=== PATIENT | female | born 1990 | race American Indian/Alaskan Native ===

== ENCOUNTER 2019-01-14 11:41 | Emergency (ER) | payer SELFPAY ==
[2019-01-14 12:03] VITALS: BP 145/71
--- NOTE | 2019-01-14 12:04 | Emergency Department Report ---
Blank Doc - Documentation Documentation: This is a 28-year-old female that presents with right eyelid swelling. Stated was bitten by a insect and believes is getting worse with swelling and pain. Happened 3 days ago. This initial assessment/diagnostic orders/clinical plan/treatment(s) is/are subject to change based on patient's health status, clinical progression and re- assessment by fellow clinical providers in the ED. Further treatment and workup at subsequent clinical providers discretion. Patient/guardians urged not to elope from the ED as their condition may be serious if not clinically assessed and managed. Initial orders include: 1- Patient sent to [facility] for further evaluation and treatment
--- NOTE | 2019-01-14 13:27 | Emergency Department Report ---
ED General Adult HPI - General Chief complaint: Medical Clearance Stated complaint: RT EYEBROW YELLOW ALESSANDRA/PAIN Time Seen by Provider: 01/14/19 12:01 Source: patient Mode of arrival: Ambulatory Limitations: No Limitations - History of Present Illness Initial comments: This is a 28 year-old female who presents since to the emergency room with swelling and pain over right eyebrow from a bee sting 3 days ago. Patient states this occurred while she was at work and she works for the [employer]. She was sent to an urgent care for clearance which was far from home so she came to the ER for clearance. She reports itching and mild swelling. She denies visual changes. Onset/Timin -: days(s) Location: eyes (right eyebrow) Radiation: non-radiation Severity scale (0 -10): 6 Quality: aching Consistency: intermittent Improves with: none Worsens with: none Associated Symptoms: denies other symptoms Treatments Prior to Arrival: none - Related Data Previous Rx's Medication Instructions Recorded Last Taken Type hydrOXYzine PAMOATE [Vistaril] 25 mg PO Q6HR PRN #20 capsule 01/14/19 Unknown Rx methylPREDNISolone [Medrol 4MG 4 mg PO DAILY #1 tab.ds.pk 01/14/19 Unknown Rx DOSEPAK (21 tabs)] Allergies Allergy/AdvReac Type Severity Reaction Status Date / Time No Known Allergies Allergy Unverified 01/14/19 11:42 ED Review of Systems ROS: Stated complaint: RT EYEBROW YELLOW ALESSANDRA/PAIN Other details as noted in HPI Constitutional: denies: chills, fever Respiratory: denies: cough, shortness of breath, wheezing Cardiovascular: denies: chest pain, palpitations Gastrointestinal: denies: abdominal pain, nausea, diarrhea Skin: lesions (swelling over left eyebrow). denies: rash Neurological: denies: headache, weakness, paresthesias Psychiatric: denies: anxiety, depression ED Past Medical Hx - Past Medical History Previous Medical History?: No - Surgical History Past Surgical History?: No - Social History Smoking Status: Never Smoker Substance Use Type: None - Medications Home Medications: Home Medications Medication Instructions Recorded Confirmed Last Taken Type hydrOXYzine PAMOATE [Vistaril] 25 mg PO Q6HR PRN #20 capsule 01/14/19 Unknown Rx methylPREDNISolone [Medrol 4MG 4 mg PO DAILY #1 tab.ds.pk 01/14/19 Unknown Rx DOSEPAK (21 tabs)] ED Physical Exam - General Limitations: No Limitations General appearance: alert, in no apparent distress, obese - ENT ENT exam: Present: mucous membranes moist - Respiratory Respiratory exam: Present: normal lung sounds bilaterally. Absent: respiratory distress - Cardiovascular Cardiovascular Exam: Present: regular rate, normal rhythm. Absent: systolic murmur, diastolic murmur, rubs, gallop - GI/Abdominal GI/Abdominal exam: Present: soft, normal bowel sounds - Neurological Exam Neurological exam: Present: alert, oriented X3 - Psychiatric Psychiatric exam: Present: normal affect, normal mood - Skin Skin exam: Present: warm, dry, intact, normal color, other (1/2 cm nonfluctuant abscess above left eyebrow, nontender and no surrounding cellulitis). Absent: rash ED Course Vital Signs 01/14/19 12:02 Temperature 98.2 F Pulse Rate 84 Respiratory 16 Rate Blood Pressure 145/71 O2 Sat by Pulse 100 Oximetry ED Medical Decision Making - Medical Decision Making Patient was examined by me. Vitals are normal and patient is in no acute distress. There is mild swelling of the left eyebrow that is nontender which appears to be from a insect bite. Start medrol dose pack and vistaril. Plan discussed with patient to discharge home and treat outpatient. Patient discharged home in stable condition. Follow up with PCP in 2-3 days. Critical care attestation.: If time is entered above; I have spent that time in minutes in the direct care of this critically ill patient, excluding procedure time. ED Disposition Clinical Impression: Insect bite Qualifiers: Encounter type: initial encounter Site of insect bite: head Site of insect bite of head: eyelid Laterality: left Qualified Code(s): S00.262A - Insect bite (nonvenomous) of left eyelid and periocular area, initial encounter; W57.XXXA - Bitten or stung by nonvenomous insect and other nonvenomous arthropods, initial encounter Disposition: - TO HOME OR SELFCARE Is pt being admited?: No Does the pt Need Aspirin: No Condition: Stable Instructions: Insect Bite or Sting (ED) Additional Instructions: Complete full course of steroids. Prescriptions: methylPREDNISolone [Medrol 4MG DOSEPAK (21 tabs)] 4 mg PO DAILY #1 tab.ds.pk hydrOXYzine PAMOATE [Vistaril] 25 mg PO Q6HR PRN #20 capsule PRN Reason: Itching Referrals: [facility] [Outside] - 3-5 Days [facility] [Outside] - 3-5 Days [facility] [Provider Group] - 3-5 Days Forms: Work/School Release Form(ED) Time of Disposition: 13:34
== END 2019-01-14 13:44 | disposition home or self-care (01) ==
LOC: ED 11:41
DX: S00.262A Insect bite (nonvenomous) of left eyelid and periocular area, initial encounter (principal); Z79.899 Other long term (current) drug therapy; W57.XXXA Bitten or stung by nonvenomous insect and other nonvenomous arthropods, initial encounter; Y93.89 Activity, other specified; Y92.89 Other specified places as the place of occurrence of the external cause; Y99.8 Other external cause status
CPT/HCPCS: 99282

== ENCOUNTER 2019-05-26 22:04 | Emergency (ER) | payer SELFPAY ==
[2019-05-26 22:27] VITALS: BP 167/92
--- NOTE | 2019-05-27 01:40 | Emergency Department Report ---
HPI - General Chief Complaint: Upper Respiratory Infection Time Seen by Provider: 05/27/19 01:15 - HPI HPI: Room 42 The patient is a 28-year-old female presenting with a chief complaint of "flulike symptoms." The patient states for the past 4 days she's had body aches, head and chest congestion and a cough productive of sputum. Patient states she's had her subjective fever and rhinorrhea. Patient states today she developed bilateral ear pain prompting her to come to the emergency department. Patient states her sister was sick with the same symptoms Location: [See above] Duration: [See above] Quality: [See above] Severity: [See above] Timing: [See above] Context: [See above] Modifying factors: [See above] Associated signs and symptoms: [see above] ED Past Medical Hx - Past Medical History Previous Medical History?: No - Surgical History Past Surgical History?: No - Family History Family history: no significant - Social History Smoking Status: Never Smoker Substance Use Type: None (denies illicit drug use) - Medications Home Medications: Home Medications Medication Instructions Recorded Confirmed Last Taken Type hydrOXYzine PAMOATE [Vistaril] 25 mg PO Q6HR PRN #20 capsule 01/14/19 Unknown Rx methylPREDNISolone [Medrol 4MG 4 mg PO DAILY #1 tab.ds.pk 01/14/19 Unknown Rx DOSEPAK (21 tabs)] Amoxicillin [Amoxicillin TAB] 875 mg PO BID #14 tablet 05/27/19 Unknown Rx Benzonatate [Tessalon Perles] 100 mg PO Q8HR #30 capsule 05/27/19 Unknown Rx HYDROcodone/APAP 5-325 [[place] 1 - 2 each PO Q6HR PRN #7 tablet 05/27/19 Unknown Rx 5/325] Ibuprofen [Motrin 800 MG tab] 800 mg PO Q8HR PRN #20 tablet 05/27/19 Unknown Rx ED Review of Systems ROS: Stated complaint: COLD SYMPTOMS, EAR PAIN Other details as noted in HPI Constitutional: fever (subjective) Eyes: denies: eye pain ENT: ear pain, throat pain Respiratory: cough Cardiovascular: denies: chest pain Endocrine: no symptoms reported Gastrointestinal: denies: abdominal pain Genitourinary: denies: dysuria Musculoskeletal: myalgia Neurological: denies: headache Physical Exam - Physical Exam Vital Signs: Vital Signs 05/26/19 22:21 Temperature 99.8 F H Pulse Rate 101 H Respiratory 18 Rate Blood Pressure 167/92 O2 Sat by Pulse 97 Oximetry Physical Exam: GENERAL: The patient is well-developed well-nourished female sitting in chair not appearing to be in acute distress HEENT: Normocephalic. Atraumatic. Extraocular motions are intact. Patient has moist mucous membranes. TMs clear bilaterally. Oropharynx slightly injected on the right side NECK: Supple. No meningitic signs are noted. Midline CHEST/LUNGS: Clear to auscultation. There is no respiratory distress noted. HEART/CARDIOVASCULAR: Regular. There is no tachycardia. There is no gallop rub or murmur. ABDOMEN: Abdomen is soft, nontender. Patient has normal bowel sounds. There is no abdominal distention. SKIN: There is no rash. There is no edema. There is no diaphoresis. NEURO: The patient is awake, alert, and oriented. The patient is cooperative. The patient has normal speech MUSCULOSKELETAL: There is no evidence of acute injury. ED Course Vital Signs 05/26/19 22:21 Temperature 99.8 F H Pulse Rate 101 H Respiratory 18 Rate Blood Pressure 167/92 O2 Sat by Pulse 97 Oximetry ED Medical Decision Making - Lab Data Laboratory Tests 05/27/19 02:04 Influenza A (Rapid) Negative Influenza B (Rapid) Negative - Radiology Data Radiology results: report reviewed (chest x-ray), image reviewed (chest x-ray) interpreted by me: Chest x-ray-no focal infiltrates, no pneumothorax [facility] [address] [place] [address] XRay Report Signed Patient: WALLY DEE MR #: [id number] : 1990 Acct:[id number] Age/Sex: 28 / F ADM Date: 05/26/19 Loc: ED Attending Dr: Ordering Physician: JOSELITO ROBERTS MD Date of Service: 05/27/19 Procedure(s): XR chest routine 2V Accession Number(s): [id number] cc: JOSELITO ROBERTS MD Fluoro Time In Minutes: CHEST 2 VIEWS INDICATION / CLINICAL INFORMATION: cough, congestion. COMPARISON: None available. FINDINGS: SUPPORT DEVICES: None. HEART / MEDIASTINUM: No significant abnormality. LUNGS / PLEURA: No significant pulmonary or pleural abnormality. No pneumothorax. ADDITIONAL FINDINGS: No significant additional findings. IMPRESSION: 1. No acute findings. Signer Name: Trey Quintana MD Signed: 05/27/2019 1:50 AM Workstation Name: [id number] Transcribed By: Dictated By: Trey Quintana MD Electronically Authenticated By: Trey Quintana MD Signed Date/Time: 05/27/19149 DD/ 9 TD/TT: - Differential Diagnosis influenza, sinusitis, bronchitis, pneumonia Critical care attestation.: If time is entered above; I have spent that time in minutes in the direct care of this critically ill patient, excluding procedure time. ED Disposition Clinical Impression: URI (upper respiratory infection) Disposition: - TO HOME OR SELFCARE Is pt being admited?: No Does the pt Need Aspirin: No Condition: Stable Instructions: Upper Respiratory Infection (ED) Additional Instructions: Return to the emergency department should you develop worsening symptoms, inability to tolerate food or liquids, high fever or any other concerns Prescriptions: Amoxicillin [Amoxicillin TAB] 875 mg PO BID #14 tablet Ibuprofen [Motrin 800 MG tab] 800 mg PO Q8HR PRN #20 tablet PRN Reason: Pain, Moderate (4-6) HYDROcodone/APAP 5-325 [[place] 5/325] 1 - 2 each PO Q6HR PRN #7 tablet PRN Reason: Pain Benzonatate [Tessalon Perles] 100 mg PO Q8HR #30 capsule Referrals: NATALIE WATSON MD [Staff Physician] - 3-5 Days Time of Disposition: 02:58
--- NOTE | 2019-05-27 01:55 | XRay Report ---
CHEST 2 VIEWS INDICATION / CLINICAL INFORMATION: cough, congestion. COMPARISON: None available. FINDINGS: SUPPORT DEVICES: None. HEART / MEDIASTINUM: No significant abnormality. LUNGS / PLEURA: No significant pulmonary or pleural abnormality. No pneumothorax. ADDITIONAL FINDINGS: No significant additional findings. IMPRESSION: 1. No acute findings. Signer Name: Trey Quintana MD Signed: 05/27/2019 1:50 AM Workstation Name: [id number]
== END 2019-05-27 03:10 | disposition home or self-care (01) ==
LOC: ED 22:04
DX: J06.9 Acute upper respiratory infection, unspecified (principal); Z79.899 Other long term (current) drug therapy
CPT/HCPCS: 71046; 87400

== ENCOUNTER 2019-08-11 07:54 | Emergency (ER) | payer OTHER ==
[2019-08-11 08:07] VITALS: BP 121/71
[2019-08-11] MEDS ORDERED: predniSONE 20 MG TAB PO ONE (13:11)
[2019-08-11] MEDS ORDERED: KETOROLAC 60 MG/2 ML INJ IM ONE (13:11)
--- NOTE | 2019-08-11 14:19 | Emergency Department Report ---
ED Neck Pain/Injury HPI - General Chief Complaint: Pain General Stated Complaint: BODY, RIG AND SHOULDER PAIN Time Seen by Provider: 08/11/19 13:10 Mode of arrival: Ambulatory Limitations: No Limitations - History of Present Illness Initial Comments: This is a 28-year-old female nontoxic, well nourished in appearance, no acute signs of distress presents to the ED with c/o of tight sided upper back pain. Patient stated that the past 2 days she was moving and developed this pain. Patient states that pain radiates to right upper arm. Patient denies any trauma. Denies any bladder or bowel instability. Patient denies any urinary symptoms. Denies any fever, chills, nausea, vomiting, headache, stiff neck, chest pain or shortness of breath. Patient denies any numbness or tingling. Denies any allergies. Denies significant past medical history. MD Complaint: upper back pain -: days(s) Place: work Radiation: right upper extremity Severity: mild Severity scale (0 -10): 3 Quality: aching Consistency: intermittent Improves With: none Worsens With: none Associated Symptoms: none. denies: headache, fever, numbness, tingling, weakness, vertigo, difficulty walking, swollen glands, difficulty swallowing, nausea, vomiting Treatments Prior to Arrival: none - Related Data Previous Rx's Medication Instructions Recorded Last Taken Type hydrOXYzine PAMOATE [Vistaril] 25 mg PO Q6HR PRN #20 capsule 01/14/19 Unknown Rx methylPREDNISolone [Medrol 4MG 4 mg PO DAILY #1 tab.ds.pk 01/14/19 Unknown Rx DOSEPAK (21 tabs)] Amoxicillin [Amoxicillin TAB] 875 mg PO BID #14 tablet 05/27/19 Unknown Rx Benzonatate [Tessalon Perles] 100 mg PO Q8HR #30 capsule 05/27/19 Unknown Rx HYDROcodone/APAP 5-325 [[place] 1 - 2 each PO Q6HR PRN #7 tablet 05/27/19 Unknown Rx 5/325] Ibuprofen [Motrin 800 MG tab] 800 mg PO Q8HR PRN #20 tablet 05/27/19 Unknown Rx Cyclobenzaprine [Flexeril] 10 mg PO QHS PRN #10 tablet 08/11/19 Unknown Rx Naproxen 500 mg PO Q12H PRN #20 tablet 08/11/19 Unknown Rx Allergies Allergy/AdvReac Type Severity Reaction Status Date / Time No Known Allergies Allergy Unverified 01/14/19 11:42 ED Review of Systems ROS: Stated complaint: BODY, RIG AND SHOULDER PAIN Other details as noted in HPI Constitutional: denies: chills, fever Eyes: denies: eye pain, eye discharge, vision change ENT: denies: ear pain, throat pain Respiratory: denies: cough, shortness of breath, wheezing Cardiovascular: denies: chest pain, palpitations Endocrine: no symptoms reported Gastrointestinal: denies: abdominal pain, nausea, diarrhea Genitourinary: denies: urgency, dysuria, discharge Musculoskeletal: back pain. denies: joint swelling, arthralgia Skin: denies: rash, lesions Neurological: denies: headache, weakness, paresthesias Psychiatric: denies: anxiety, depression Hematological/Lymphatic: denies: easy bleeding, easy bruising ED Past Medical Hx - Past Medical History Previous Medical History?: No - Surgical History Past Surgical History?: No - Social History Smoking Status: Never Smoker - Medications Home Medications: Home Medications Medication Instructions Recorded Confirmed Last Taken Type hydrOXYzine PAMOATE [Vistaril] 25 mg PO Q6HR PRN #20 capsule 01/14/19 Unknown Rx methylPREDNISolone [Medrol 4MG 4 mg PO DAILY #1 tab.ds.pk 01/14/19 Unknown Rx DOSEPAK (21 tabs)] Amoxicillin [Amoxicillin TAB] 875 mg PO BID #14 tablet 05/27/19 Unknown Rx Benzonatate [Tessalon Perles] 100 mg PO Q8HR #30 capsule 05/27/19 Unknown Rx HYDROcodone/APAP 5-325 [[place] 1 - 2 each PO Q6HR PRN #7 tablet 05/27/19 Unknown Rx 5/325] Ibuprofen [Motrin 800 MG tab] 800 mg PO Q8HR PRN #20 tablet 05/27/19 Unknown Rx Cyclobenzaprine [Flexeril] 10 mg PO QHS PRN #10 tablet 08/11/19 Unknown Rx Naproxen 500 mg PO Q12H PRN #20 tablet 08/11/19 Unknown Rx ED Physical Exam - General Limitations: No Limitations General appearance: alert, in no apparent distress - Head Head exam: Present: atraumatic, normocephalic - Neck Neck exam: Present: normal inspection, full ROM. Absent: tenderness, meningismus, lymphadenopathy - Respiratory Respiratory exam: Present: normal lung sounds bilaterally. Absent: respiratory distress, wheezes, rales, rhonchi, stridor, chest wall tenderness, accessory muscle use, decreased breath sounds, prolonged expiratory - Cardiovascular Cardiovascular Exam: Present: regular rate, normal rhythm, normal heart sounds. Absent: irregular rhythm, systolic murmur, diastolic murmur, rubs, gallop - GI/Abdominal GI/Abdominal exam: Present: soft, normal bowel sounds. Absent: distended, tenderness, guarding, rebound, rigid, diminished bowel sounds - Extremities Exam Extremities exam: Present: normal inspection, full ROM, normal capillary refill. Absent: tenderness, joint swelling - Back Exam Back exam: Present: normal inspection, full ROM, paraspinal tenderness (right cervical paraspinal). Absent: tenderness, CVA tenderness (R), CVA tenderness (L), muscle spasm, vertebral tenderness, rash noted - Neurological Exam Neurological exam: Present: alert, oriented X3, normal gait - Psychiatric Psychiatric exam: Present: normal affect, normal mood - Skin Skin exam: Present: warm, dry, intact, normal color. Absent: rash ED Course Vital Signs 08/11/19 08:04 Temperature 98.1 F Pulse Rate 92 H Respiratory 20 Rate Blood Pressure 121/71 O2 Sat by Pulse 100 Oximetry - Reevaluation(s) Reevaluation #1: 08/11/19 14:18 Patient is speaking in full sentences with no signs of distress noted. ED Medical Decision Making - Medical Decision Making This is a 28-year-old female that presents with upper back strain. Patient is stable was examined by me. There is no spinal tenderness. There is no cauda equina syndrome during examination. No bladder or bowel instability. Patient received Toradol 60 mg IM in the ED which preceded his symptoms has resolved and subsided. Patient is discharged with muscle relaxant and Motrin. Patient was instructed not to operate any machinery while taking muscle relaxant as they cause her drowsiness. Patient was referred to Follow-up with a primary care doctor in 3-5 days or if symptoms worsen and continue return to emergency room as soon as possible. At time of discharge, the patient does not seem toxic or ill in appearance. No acute signs of distress noted. Patient agrees to discharge treatment plan of care. No further questions noted by the patient. This chart is dictated with using Dragon Dictation Program Critical care attestation.: If time is entered above; I have spent that time in minutes in the direct care of this critically ill patient, excluding procedure time. ED Disposition Clinical Impression: Cervical muscle strain Qualifiers: Encounter type: initial encounter Qualified Code(s): S16.1XXA - Strain of muscle, fascia and tendon at neck level, initial encounter Disposition: TO HOME OR SELFCARE Is pt being admited?: No Does the pt Need Aspirin: No Condition: Stable Instructions: Muscle Strain (ED), Cyclobenzaprine (By mouth) Additional Instructions: Follow-up with your primary care doctor in 3-5 days or if symptoms worsen such as bladder or bowel stability, chest pain, short of breath, numbness or tingling sensation in extremities, headache, dizziness, visual changes, nausea vomiting, or abdominal pain, return back to emergency room as was possible. Take ibuprofen and Flexeril as prescribed. Do not operate heavy machinery while taking Flexeril due to sedation Prescriptions: Cyclobenzaprine [Flexeril] 10 mg PO QHS PRN #10 tablet PRN Reason: Muscle Spasm Naproxen 500 mg PO Q12H PRN #20 tablet PRN Reason: Pain, Moderate (4-6) Referrals: PRIMARY CAREMD [Primary Care Provider] - 3-5 Days NATALIE WATSON MD [Staff Physician] - 3-5 Days [facility] [Outside] - 3-5 Days Forms: Work/School Release Form(ED)
== END 2019-08-11 15:00 | disposition home or self-care (01) ==
LOC: ED 07:54
DX: S16.1XXA Strain of muscle, fascia and tendon at neck level, initial encounter (principal); M54.6 Pain in thoracic spine; Z79.899 Other long term (current) drug therapy; X58.XXXA Exposure to other specified factors, initial encounter; Y93.89 Activity, other specified; Y92.89 Other specified places as the place of occurrence of the external cause; Y99.8 Other external cause status
CPT/HCPCS: 96372; 99282; J1885; J7512

== ENCOUNTER 2020-02-06 10:19 | Emergency (ER) | payer OTHER ==
[2020-02-06 10:24] VITALS: BP 154/74
--- NOTE | 2020-02-06 11:02 | Emergency Department Report ---
ED Fall HPI - General Chief Complaint: Fall Stated Complaint: KNEE PAIN Time Seen by Provider: 02/06/20 10:22 Source: patient Mode of arrival: Ambulatory - History of Present Illness Initial Comments: Patient is a 29-year-old female presents emergency room complaints of left knee pain that began yesterday. She states that she was playing around with another person and they accidentally pushed her and she fell onto the left knee. She states that she has pain with ambulation and is walking with a limp. She states that she has had knee sprains before but never fractured or never had to have surgery on this knee. She denies any numbness or weakness. She states that weightbearing does increase her pain. No past medical history. No allergies medications. - Related Data Previous Rx's Medication Instructions Recorded Last Taken Type hydrOXYzine PAMOATE [Vistaril] 25 mg PO Q6HR PRN #20 capsule 01/14/19 Unknown Rx methylPREDNISolone [Medrol 4MG 4 mg PO DAILY #1 tab.ds.pk 01/14/19 Unknown Rx DOSEPAK (21 tabs)] Amoxicillin [Amoxicillin TAB] 875 mg PO BID #14 tablet 05/27/19 Unknown Rx Benzonatate [Tessalon Perles] 100 mg PO Q8HR #30 capsule 05/27/19 Unknown Rx HYDROcodone/APAP 5-325 [[place] 1 - 2 each PO Q6HR PRN #7 tablet 05/27/19 Unknown Rx 5/325] Ibuprofen [Motrin 800 MG tab] 800 mg PO Q8HR PRN #20 tablet 05/27/19 Unknown Rx Cyclobenzaprine [Flexeril] 10 mg PO QHS PRN #10 tablet 08/11/19 Unknown Rx Naproxen 500 mg PO Q12H PRN #20 tablet 08/11/19 Unknown Rx Clindamycin [Clindamycin CAP] 300 mg PO Q6H #40 capsule 12/15/19 Unknown Rx HYDROcodone/APAP 5-325 [[place] 1 each PO Q6HR PRN #7 tablet 12/15/19 Unknown Rx 5/325] Naproxen 500 mg PO BID PRN #20 tablet 02/06/20 Unknown Rx Allergies Allergy/AdvReac Type Severity Reaction Status Date / Time No Known Allergies Allergy Unverified 01/14/19 11:42 ED Review of Systems ROS: Stated complaint: KNEE PAIN Other details as noted in HPI Comment: All other systems reviewed and negative ED Past Medical Hx - Past Medical History Previous Medical History?: No - Surgical History Past Surgical History?: No - Social History Smoking Status: Never Smoker Substance Use Type: None - Medications Home Medications: Home Medications Medication Instructions Recorded Confirmed Last Taken Type hydrOXYzine PAMOATE [Vistaril] 25 mg PO Q6HR PRN #20 capsule 01/14/19 Unknown Rx methylPREDNISolone [Medrol 4MG 4 mg PO DAILY #1 tab.ds.pk 01/14/19 Unknown Rx DOSEPAK (21 tabs)] Amoxicillin [Amoxicillin TAB] 875 mg PO BID #14 tablet 05/27/19 Unknown Rx Benzonatate [Tessalon Perles] 100 mg PO Q8HR #30 capsule 05/27/19 Unknown Rx HYDROcodone/APAP 5-325 [[place] 1 - 2 each PO Q6HR PRN #7 tablet 05/27/19 Unknown Rx 5/325] Ibuprofen [Motrin 800 MG tab] 800 mg PO Q8HR PRN #20 tablet 05/27/19 Unknown Rx Cyclobenzaprine [Flexeril] 10 mg PO QHS PRN #10 tablet 08/11/19 Unknown Rx Naproxen 500 mg PO Q12H PRN #20 tablet 08/11/19 Unknown Rx Clindamycin [Clindamycin CAP] 300 mg PO Q6H #40 capsule 12/15/19 Unknown Rx HYDROcodone/APAP 5-325 [[place] 1 each PO Q6HR PRN #7 tablet 12/15/19 Unknown Rx 5/325] Naproxen 500 mg PO BID PRN #20 tablet 02/06/20 Unknown Rx ED Physical Exam - General Limitations: No Limitations General appearance: alert, in no apparent distress - Head Head exam: Present: atraumatic, normocephalic - Eye Eye exam: Present: normal appearance - ENT ENT exam: Present: mucous membranes moist - Extremities Exam Extremities exam: Present: other (ttp to the left anterior knee, mild edema to the left knee, FROM of the left knee with discomfort upon flexion, no obvious joint laxity, no obvious deformity, neurovascularly intact) - Neurological Exam Neurological exam: Present: alert, oriented X3 - Psychiatric Psychiatric exam: Present: normal affect, normal mood - Skin Skin exam: Present: warm, dry, intact. Absent: abrasion, ecchymosis ED Course Vital Signs 08/13/20 10:22 Temperature 98.7 F Pulse Rate 105 H Respiratory 17 Rate Blood Pressure 154/74 O2 Sat by Pulse 96 Oximetry ED Medical Decision Making - Radiology Data Radiology results: report reviewed LEFT KNEE 3 VIEWS INDICATION: fall, knee pain. COMPARISON: None. IMPRESSION: A moderate joint effusion is identified on the lateral image. No acute osseous findings or joint pathology is appreciated. If internal derangement is suspected, MRI left knee without contrast is recommended. Signer Name: Keith Valdez Jr, MD Signed: 02/06/2020 11:05 AM Workstation Name: [id number] Transcribed By: TTR Dictated By: KEITH VALDEZ JR, MD Electronically Authenticated By: KEITH VALDEZ JR, MD Signed Date/Time: 02/06/201104 DD/ 03 TD/TT: - Medical Decision Making Patient is a 29-year-old female presents emergency room complaints of left knee pain that began yesterday. She states that she was playing around with another person and they accidentally pushed her and she fell onto the left knee. She states that she has pain with ambulation and is walking with a limp. She states that she has had knee sprains before but never fractured or never had to have surgery on this knee. She denies any numbness or weakness. She states that weightbearing does increase her pain. No past medical history. No allergies medications. on exam: ttp to the left anterior knee, mild edema to the left knee, FROM of the left knee with discomfort upon flexion, no obvious joint laxity, no obvious deformity, neurovascularly intact. XR left knee: A moderate joint effusion is identified on the lateral image. No acute osseous findings or joint pathology is appreciated. If internal derangement is suspected, MRI left knee without contrast is recommended. Patient given pain medication while in the ED as she did not drive. Patient placed in knee immobilizer and given crutches. Concern for ligamentous/tendinous injury due to traumatic knee effusion, advised patient no weightbearing, discussed the importance of orthopedic follow-up for possible MRI. pt given prescription for naproxen. advised pt Please take medication as prescribed as needed. Please do not bear weight on the leg. Please follow-up with the orthopedic doctor, it is very important that you follow-up to rule out a ligament or tendon injury. take your xray report with you. Return to emergency room for any new or worsening symptoms. - Differential Diagnosis strain, sprain, fx, dislocation, meniscus injury, ligament/tendon injury Critical care attestation.: If time is entered above; I have spent that time in minutes in the direct care of this critically ill patient, excluding procedure time. ED Disposition Clinical Impression: Left knee pain Qualifiers: Chronicity: acute Qualified Code(s): M25.562 - Pain in left knee Joint effusion Qualifiers: Effusion of joint location: knee Laterality: left Qualified Code(s): M25.462 - Effusion, left knee Internal derangement of knee Qualifiers: Laterality: left Qualified Code(s): M23.92 - Unspecified internal derangement of left knee Disposition: TO HOME OR SELFCARE Is pt being admited?: No Does the pt Need Aspirin: No Condition: Stable Instructions: Knee Sprain (ED), Crutch Instructions (ED), Knee Immobilizer (ED) Additional Instructions: Please take medication as prescribed as needed. Please do not bear weight on the leg. Please follow-up with the orthopedic doctor, it is very important that you follow-up to rule out a ligament or tendon injury. take your xray report with you. Return to emergency room for any new or worsening symptoms. Prescriptions: Naproxen 500 mg PO BID PRN #20 tablet PRN Reason: pain Referrals: VINEET MONTILLA MD [Staff Physician] - 2-3 Days [facility] [Provider Group] - 2-3 Days Forms: Work/School Release Form(ED) Time of Disposition: 11:45 Print Language: LATVIAN
--- NOTE | 2020-02-06 11:10 | XRay Report ---
LEFT KNEE 3 VIEWS INDICATION: fall, knee pain. COMPARISON: None. IMPRESSION: A moderate joint effusion is identified on the lateral image. No acute osseous findings or joint pathology is appreciated. If internal derangement is suspected, MRI left knee without contr ast is recommended. Signer Name: Keith Bauer Jr, MD Signed: 02/06/2020 11:05 AM Workstation Name: [id number]
[2020-02-06] MEDS ORDERED: HYDROcodone/ACETAMINOPHEN 5-325 MG TAB PO ONE (11:44)
== END 2020-02-06 12:55 | disposition home or self-care (01) ==
LOC: ED 10:19
DX: M23.92 Unspecified internal derangement of left knee (principal); M25.462 Effusion, left knee; Z79.899 Other long term (current) drug therapy

== ENCOUNTER 2021-01-27 14:05 | Emergency (ER) | payer SELFPAY ==
--- NOTE | 2021-01-27 15:54 | Event Note ---
ED Screening Note Date of service: 01/27/21 Time: 15:53 ED Screening Note: Patient with no significant past medical history She presents to the ER today with complaints of nausea, vomiting and diarrhea and right flank pain Patient states that her symptoms started last Monday. She states that it had resolved but then he started again today. Her last menstrual cycle was January 06 through the . This initial assessment/diagnostic orders/clinical plan/treatment(s) is/are subject to change based on patients health status, clinical progression and re- assessment by fellow clinical providers in the ED. Further treatment and workup at subsequent clinical providers discretion. Patient/guardian urged not to elope from the ED as their condition may be serious if not clinically assessed and managed. Initial orders include: Labs
[2021-01-27 17:00] LABS: Bacteria,Urine 1+ /HPF (Negative); Bilirubin,Urine NEG (Negative); Blood,Urine NEG (Negative); Color,Urine Yellow (Yellow); Mucus,Urine 2+ /HPF; Protein,Urine <15 mg/dL mg/dL (Negative); Urobilinogen,Urine < 2.0 mg/dL (<2.0)
[2021-01-27 17:03] LABS: HCG Qualitative,Urine Negative (Negative)
[2021-01-27 17:06] LABS: Alanine Aminotransferase 15 units/L (7-56); Albumin 3.8 g/dL (3.9-5); Blood Urea Nitrogen 14 mg/dL (7-17); Calcium 9.5 mg/dL (8.4-10.2); Hemolysis Index 88
[2021-01-27 17:14] LABS: BUN/Creatinine Ratio 20
[2021-01-27 17:35] LABS: Hematocrit 33.3 % (30.3-42.9); Hemoglobin 10.9 gm/dl (10.1-14.3); Mean Corpuscular HGB Conc 33 % (30-34); Mean Corpuscular Volume 82 fl (79-97); Red Blood Count 4.09 M/mm3 (3.65-5.03); Red Cell Distribution Width 16.2 % (13.2-15.2)
[2021-01-27 18:13] LABS: Total Cells Counted 100
[2021-01-27 18:14] LABS: Anisocytosis 1+; Large Platelets Few; Platelet Estimate Consistent w Auto
[2021-01-27 18:15] LABS: Platelet Count 337 K/mm3 (140-440)
[2021-01-27] MEDS ORDERED: HYOSCYAMINE SUBL 0.125 MG TAB SL ONE (18:38)
[2021-01-27] MEDS ORDERED: ONDANSETRON 4 MG ODT TAB PO ONE (18:38)
--- NOTE | 2021-01-27 18:42 | Emergency Department Report ---
ED N/V/D HPI - General Chief complaint: Nausea/Vomiting/Diarrhea Stated complaint: NAUSEA Time Seen by Provider: 01/27/21 18:37 Source: patient Mode of arrival: Ambulatory Limitations: No Limitations - History of Present Illness Initial comments: Patient is a 30-year-old female presents emergency room with complaints of nausea, vomiting, diarrhea that initially occurred 5 days ago. She states it lasted approximately 24 hours and then resolved. She states yesterday she began having the symptoms again. States she recently had one episode of vomiting today. she has been able to tolerate p.o. intake. She denies any sick contacts, recent travel, recent antibiotics, water from a different source. She states yesterday she began having some mild right flank pain. She denies any fever, chills, hematochezia, melena, hematemesis, urinary symptoms, abnormal vaginal discharge. No past medical history. No allergies to medications. Last menstrual cycle 01/06/2021. - Related Data Previous Rx's Medication Instructions Recorded Last Taken Type hydrOXYzine PAMOATE [Vistaril] 25 mg PO Q6HR PRN #20 capsule 01/14/19 Unknown Rx methylPREDNISolone [Medrol 4MG 4 mg PO DAILY #1 tab.ds.pk 01/14/19 Unknown Rx DOSEPAK (21 tabs)] Amoxicillin [Amoxicillin TAB] 875 mg PO BID #14 tablet 05/27/19 Unknown Rx Benzonatate [Tessalon Perles] 100 mg PO Q8HR #30 capsule 05/27/19 Unknown Rx HYDROcodone/APAP 5-325 [[place] 1 - 2 each PO Q6HR PRN #7 tablet 05/27/19 Unknown Rx 5/325] Cyclobenzaprine [Flexeril] 10 mg PO QHS PRN #10 tablet 08/11/19 Unknown Rx Naproxen 500 mg PO Q12H PRN #20 tablet 08/11/19 Unknown Rx Clindamycin [Clindamycin CAP] 300 mg PO Q6H #40 capsule 12/15/19 Unknown Rx HYDROcodone/APAP 5-325 [[place] 1 each PO Q6HR PRN #7 tablet 12/15/19 Unknown Rx 5/325] Naproxen 500 mg PO BID PRN #20 tablet 02/06/20 Unknown Rx Baclofen 20 mg PO Q8H PRN #24 tablet 03/04/20 Unknown Rx Ibuprofen [Motrin 800 MG tab] 800 mg PO Q8HR PRN #30 tablet 03/04/20 Unknown Rx Hyoscyamine Subl [Levsin Sl 0.125 0.125 mg SL Q6HR PRN #10 tab 01/27/21 Unknown Rx TAB] Ondansetron [Zofran Odt] 4 mg PO Q8HR PRN #10 tab.rapdis 01/27/21 Unknown Rx cephALEXin [Keflex] 500 mg PO BID 7 Days #14 cap 01/27/21 Unknown Rx Allergies Allergy/AdvReac Type Severity Reaction Status Date / Time No Known Allergies Allergy Verified 01/27/21 15:47 ED Review of Systems ROS: Stated complaint: NAUSEA Other details as noted in HPI Comment: All other systems reviewed and negative ED Past Medical Hx - Past Medical History Previous Medical History?: No - Surgical History Past Surgical History?: No - Social History Smoking Status: Never Smoker Substance Use Type: None - Medications Home Medications: Home Medications Medication Instructions Recorded Confirmed Last Taken Type hydrOXYzine PAMOATE [Vistaril] 25 mg PO Q6HR PRN #20 capsule 01/14/19 Unknown Rx methylPREDNISolone [Medrol 4MG 4 mg PO DAILY #1 tab.ds.pk 01/14/19 Unknown Rx DOSEPAK (21 tabs)] Amoxicillin [Amoxicillin TAB] 875 mg PO BID #14 tablet 05/27/19 Unknown Rx Benzonatate [Tessalon Perles] 100 mg PO Q8HR #30 capsule 05/27/19 Unknown Rx HYDROcodone/APAP 5-325 [[place] 1 - 2 each PO Q6HR PRN #7 tablet 05/27/19 Unknown Rx 5/325] Cyclobenzaprine [Flexeril] 10 mg PO QHS PRN #10 tablet 08/11/19 Unknown Rx Naproxen 500 mg PO Q12H PRN #20 tablet 08/11/19 Unknown Rx Clindamycin [Clindamycin CAP] 300 mg PO Q6H #40 capsule 12/15/19 Unknown Rx HYDROcodone/APAP 5-325 [[place] 1 each PO Q6HR PRN #7 tablet 12/15/19 Unknown Rx 5/325] Naproxen 500 mg PO BID PRN #20 tablet 02/06/20 Unknown Rx Baclofen 20 mg PO Q8H PRN #24 tablet 03/04/20 Unknown Rx Ibuprofen [Motrin 800 MG tab] 800 mg PO Q8HR PRN #30 tablet 03/04/20 Unknown Rx Hyoscyamine Subl [Levsin Sl 0.125 0.125 mg SL Q6HR PRN #10 tab 01/27/21 Unknown Rx TAB] Ondansetron [Zofran Odt] 4 mg PO Q8HR PRN #10 tab.rapdis 01/27/21 Unknown Rx cephALEXin [Keflex] 500 mg PO BID 7 Days #14 cap 01/27/21 Unknown Rx ED Physical Exam - General Limitations: No Limitations General appearance: alert, in no apparent distress - Head Head exam: Present: atraumatic, normocephalic - Eye Eye exam: Present: normal appearance - ENT ENT exam: Present: mucous membranes moist - Respiratory Respiratory exam: Present: normal lung sounds bilaterally. Absent: respiratory distress, wheezes, rales, rhonchi, stridor, chest wall tenderness, accessory muscle use, decreased breath sounds, prolonged expiratory - Cardiovascular Cardiovascular Exam: Present: regular rate, normal rhythm, normal heart sounds. Absent: systolic murmur, diastolic murmur, rubs, gallop - GI/Abdominal GI/Abdominal exam: Present: soft, normal bowel sounds. Absent: distended, tenderness, guarding, rebound, rigid - Back Exam Back exam: Absent: CVA tenderness (R), CVA tenderness (L) - Neurological Exam Neurological exam: Present: alert, oriented X3 - Psychiatric Psychiatric exam: Present: normal affect, normal mood - Skin Skin exam: Present: warm, dry, intact ED Course Vital Signs 01/27/21 01/27/21 15:50 19:32 Temperature 98.9 F 98.8 F Pulse Rate 80 78 Respiratory 20 18 Rate Blood Pressure 136/73 Blood Pressure 139/68 [Right] O2 Sat by Pulse 100 99 Oximetry ED Medical Decision Making - Lab Data Result diagrams: 01/27/21 16:05 01/27/21 16:05 Lab Results 01/27/21 01/27/21 01/27/21 Range/Units 16:05 16:05 Unknown WBC 10.9 (4.5-11.0) K/mm3 RBC 4.09 (3.65-5.03) M/mm3 Hgb 10.9 (10.1-14.3) gm/dl Hct 33.3 (30.3-42.9) % MCV 82 (79-97) fl MCH 27 L (28-32) pg MCHC 33 (30-34) % RDW 16.2 H (13.2-15.2) % Plt Count 337 (140-440) K/mm3 Lymph # (Auto) Data Integration Architect Add Manual Diff Complete Total Counted 100 Seg Neuts % (Manual) 48.0 (40.0-70.0) % Lymphocytes % (Manual) 46.0 H (13.4-35.0) % Monocytes % (Manual) 5.0 (0.0-7.3) % Eosinophils % (Manual) 1.0 (0.0-4.3) % Nucleated RBC % 1.0 H (0.0-0.9) % Seg Neutrophils # Man 5.2 (1.8-7.7) K/mm3 Band Neutrophils # 0.0 K/mm3 Lymphocytes # (Manual) 5.0 (1.2-5.4) K/mm3 Abs React Lymphs (Man) 0.0 K/mm3 Monocytes # (Manual) 0.5 (0.0-0.8) K/mm3 Eosinophils # (Manual) 0.1 (0.0-0.4) K/mm3 Basophils # (Manual) 0.0 (0.0-0.1) K/mm3 Metamyelocytes # 0.0 K/mm3 Myelocytes # 0.0 K/mm3 Promyelocytes # 0.0 K/mm3 Blast Cells # 0.0 K/mm3 WBC Morphology Not Reportable Hypersegmented Neuts Not Reportable Hyposegmented Neuts Not Reportable Hypogranular Neuts Not Reportable Smudge Cells Not Reportable Toxic Granulation Not Reportable Toxic Vacuolation Not Reportable Dohle Bodies Not Reportable Pelger-Huet Anomaly Not Reportable Alyson Rods Not Reportable Platelet Estimate Consistent w auto Clumped Platelets Not Reportable Plt Clumps, EDTA Not Reportable Large Platelets Few Giant Platelets Not Reportable Platelet Satelliting Not Reportable Plt Morphology Comment Not Reportable RBC Morphology Not Reportable Dimorphic RBCs Not Reportable Polychromasia Not Reportable Hypochromasia Not Reportable Poikilocytosis Not Reportable Anisocytosis 1+ Microcytosis Not Reportable Macrocytosis Not Reportable Spherocytes Not Reportable Pappenheimer Bodies Not Reportable Sickle Cells Not Reportable Target Cells Not Reportable Tear Drop Cells Not Reportable Ovalocytes Not Reportable Helmet Cells Not Reportable [place] Bodies Not Reportable [place] Rings Not Reportable David Cells Not Reportable Bite Cells Not Reportable Crenated Cell Not Reportable Elliptocytes Not Reportable Acanthocytes (Spur) Not Reportable Rouleaux Not Reportable Hemoglobin C Crystals Not Reportable Schistocytes Not Reportable Malaria parasites Not Reportable Didier Bodies Not Reportable Hem Pathologist Commnt No Sodium 138 (137-145) mmol/L Potassium 4.3 (3.6-5.0) mmol/L Chloride 103.4 (98-107) mmol/L Carbon Dioxide 24 (22-30) mmol/L Anion Gap 15 mmol/L BUN 14 (7-17) mg/dL Creatinine 0.7 (0.6-1.2) mg/dL Estimated GFR > 60 ml/min BUN/Creatinine Ratio 20 % Glucose 76 (65-100) mg/dL Calcium 9.5 (8.4-10.2) mg/dL Total Bilirubin 0.30 (0.1-1.2) mg/dL AST 24 (5-40) units/L ALT 15 (7-56) units/L Alkaline Phosphatase 86 (35-129) units/L Total Protein 7.8 (6.3-8.2) g/dL Albumin 3.8 L (3.9-5) g/dL Albumin/Globulin Ratio 1.0 % Amylase 59 (27-131) units/L Urine Color Yellow (Yellow) Urine Turbidity Cloudy (Clear) Urine pH 5.0 (5.0-7.0) Ur Specific [place] 1.026 (1.003-1.030) Urine Protein <15 mg/dl (Negative) mg/dL Urine Glucose (UA) Neg (Negative) mg/dL Urine Ketones Neg (Negative) mg/dL Urine Blood Neg (Negative) Urine Nitrite Neg (Negative) Urine Bilirubin Neg (Negative) Urine Urobilinogen < 2.0 (<2.0) mg/dL Ur Leukocyte Esterase Lg (Negative) Urine WBC (Auto) 92.0 H (0.0-6.0) /HPF Urine RBC (Auto) 9.0 (0.0-6.0) /HPF U Epithel Cells (Auto) 52.0 H (0-13.0) /HPF Urine Bacteria (Auto) 1+ (Negative) /HPF Urine Mucus 2+ /HPF Urine HCG, Qual Negative (Negative) - Medical Decision Making Patient is a 30-year-old female presents emergency room with complaints of n ausea, vomiting, diarrhea that initially occurred 5 days ago. She states it lasted approximately 24 hours and then resolved. She states yesterday she began having the symptoms again. States she recently had one episode of vomiting today. she has been able to tolerate p.o. intake. She denies any sick contacts, recent travel, recent antibiotics, water from a different source. She states yesterday she began having some mild right flank pain. She denies any fever, chills, hematochezia, melena, hematemesis, urinary symptoms, abnormal vaginal discharge. No past medical history. No allergies to medications. Last menstrual cycle 01/06/2021. Vitals are normal. On exam: No abdominal tendern ess, no guarding, no rebound, no rigidity, normal bowel sounds, no peritoneal signs. Labs are normal. UA shows 1+ bacteria, white blood cells, large leukocyte esterase, there are also many epithelial cells, could be due to contamination versus UTI. I advised patient that she could await culture r esults or we could give her antibiotics, she states that she would like to take antibiotics. Patient given p.o. medications while in the emergency department was able to tolerate p.o. intake with no difficulty. Patient given prescription for medications. Discussed the importance of primary care follow-up in the next 2 days. Discuss strict return precautions with patient. Advised patient Please take medication as prescribed. Increase your fluid intake over the next several days. Eat a bland liquid diet and slowly advance your diet as tolerated. Follow-up with your primary care doctor in the next 2 days for reexamination. Return to emergency room immediately for any new or worsening s ymptoms. Critical care attestation.: If time is entered above; I have spent that time in minutes in the direct care of this critically ill patient, excluding procedure time. ED Disposition Clinical Impression: Nausea vomiting and diarrhea UTI (urinary tract infection) Qualifiers: Urinary tract infection type: acute cystitis Hematuria presence: without hematuria Qualified Code(s): N30.00 - Acute cystitis without hematuria Disposition: TO HOME OR SELFCARE Is pt being admited?: No Does the pt Need Aspirin: No Condition: Stable Instructions: Viral Gastroenteritis, Adult, Urinary Tract Infection, Adult Additional Instructions: Please take medication as prescribed. Increase your fluid intake over the next several days. Eat a bland liquid diet and slowly advance your diet as tolerated. Follow-up with your primary care doctor in the next 2 days for reexamination. Return to emergency room immediately for any new or worsening symptoms. Prescriptions: cephALEXin [Keflex] 500 mg PO BID 7 Days #14 cap Hyoscyamine Subl [Levsin Sl 0.125 TAB] 0.125 mg SL Q6HR PRN #10 tab PRN Reason: abd cramping/diarrhea Ondansetron [Zofran Odt] 4 mg PO Q8HR PRN #10 tab.rapdis PRN Reason: vomiting Referrals: NATALIE WATSON MD [Staff Physician] - 2-3 Days YUSUF WEINBERG MD [Staff Physician] - 2-3 Days Forms: Work/School Release Form(ED) Time of Disposition: 18:40 Print Language: CAMBODIAN
[2021-01-27 19:33] VITALS: BP 139/68
== END 2021-01-27 19:34 | disposition home or self-care (01) ==
LOC: ED 14:05
DX: R11.2 Nausea with vomiting, unspecified (principal); R19.7 Diarrhea, unspecified; N39.0 Urinary tract infection, site not specified; Z79.899 Other long term (current) drug therapy
CPT/HCPCS: 36415; 80053; 81001; 81025; 82150; 85007; 85025; 87086; 99283; Q0162